=== PATIENT | male | born 1960 | race Caucasian/White ===

== ENCOUNTER 2017-10-24 14:56 | Emergency (ER) | payer BC, OTHER ==
[2017-10-24 16:29] VITALS: BP 111/75
--- NOTE | 2017-10-24 16:52 | UC ---
Ear Complaint HPI - HPI Summary HPI Summary: hearing loss in left ear---began with mild tinnitus on Tuesday that got worse now has hearing loss and increase tinnitus in left ear. 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 has had an autoimmune work up and no cause was found---after completing prednisone patient reports a flare of diverticulitis and one week ago finished a course of cipro and flagyl. patient does not work in a noisy environment, . Patient c/o some lightheadedness---but does not describe vertigo--- - History of Current Complaint Hx Obtained From: Patient Onset/Duration: Sudden Onset, Lasting Days - 3 Severity Initially: Mild Severity Currently: Moderate Associated Signs/Symptoms: Positive: Hearing Loss <Alondra Rehman - Last Filed: 10/24/17 17:45> <Jeni Chavez - Last Filed: 10/24/17 17:59> - History of Current Complaint Chief Complaint: UCEar Stated Complaint: EAR COMPLAINT, DIZZY Time Seen by Provider: 10/24/17 16:09 - Allergies/Home Medications Allergies/Adverse Reactions: Allergies Allergy/AdvReac Type Severity Reaction Status Date / Time No Known Allergies Allergy Verified 10/24/17 15:28 Home Medications: Home Medications ALPRAZolam [Xanax] 0.25 mg PO BID PRN 10/24/17 [History Confirmed 10/24/17] Cyclobenzaprine (NF) [Cyclobenzaprine 5 MG (NF)] 5 mg PO DAILY PRN 10/24/17 [ History Confirmed 10/24/17] Lisinopril/HCTZ 20/12.5(NF) [Zestoretic 20/12.5(NF)] 1 tab PO DAILY 10/24/17 [ History Confirmed 10/24/17] Ondansetron HCl [Zofran 4 MG TAB] 4 mg PO Q8HR PRN 10/24/17 [History Confirmed 10/24/17] PMH/Surg Hx/FS Hx/Imm Hx Previously Healthy: No - posterior uvitis-unknown cause Endocrine History: Dyslipidemia Cardiovascular History: Hypertension GI/ History: Diverticulitis - Surgical History Surgical History: Yes Surgery Procedure, Year, and Place: hernia repair x2. back surgery x2 - ruptured disc in Lumbar. rotator cuff repair- 2015. bilateral cataracts surgery- 2017 - Family History Known Family History: Positive: None - Social History Occupation: Employed Full-time Lives: With Family Alcohol Use: Weekly Alcohol Amount: 6 pack beer Substance Use Type: None Smoking Status (MU): Former Smoker <Alondra Rehman - Last Filed: 10/24/17 17:45> Review of Systems Constitutional: Negative Skin: Negative Eyes: Negative, Other - perrla no nystagmus ENT: Ear Ache - tinnitis and hearing loss left ear Respiratory: Negative Cardiovascular: Negative Gastrointestinal: Nausea Genitourinary: Negative Motor: Negative Neurovascular: Negative Musculoskeletal: Negative Neurological: Negative, Other - slight sway with rhomberg test Psychological: Negative Is Patient Immunocompromised?: No All Other Systems Reviewed And Are Negative: Yes <Alondra Rehman - Last Filed: 10/24/17 17:45> Physical Exam Triage Information Reviewed: Yes Appearance: Well-Appearing, No Pain Distress, Thin Vital Signs: Initial Vital Signs Temp 99 F 10/24/17 15:33 Pulse 89 10/24/17 15:33 Resp 20 10/24/17 15:33 BP 123/98 10/24/17 15:33 Pulse Ox 97 10/24/17 15:33 Vital Signs Reviewed: Yes Eye Exam: Normal Eyes: Positive: Conjunctiva Clear, Other: - perrla, eomi, no nystagmus ENT Exam: Normal ENT: Positive: Normal ENT inspection, Hearing grossly normal - in right ear, Pharynx normal, Nasal congestion, TMs normal, Uvula midline, Other - tounge midline, chescks puff equally, equal eyebrow raise. Negative: Tonsillar swelling, Tonsillar exudate, Trismus, Muffled voice, Hoarse voice, Dental tenderness, Sinus tenderness Dental Exam: Normal Neck exam: Normal Neck: Positive: Supple, Nontender, No Lymphadenopathy Respiratory Exam: Normal Respiratory: Positive: Chest non-tender, Lungs clear, Normal breath sounds, No respiratory distress, No accessory muscle use Cardiovascular Exam: Normal Cardiovascular: Positive: RRR, No Murmur, Pulses Normal, Brisk Capillary Refill Abdominal Exam: Normal Abdomen Description: Positive: Nontender, No Organomegaly, Soft. Negative: CVA Tenderness (R), CVA Tenderness (L) Bowel Sounds: Positive: Present Musculoskeletal Exam: Normal Musculoskeletal: Positive: Strength Intact, ROM Intact, No Edema Neurological Exam: Normal Neurological: Positive: Alert, Muscle Tone Normal Psychological Exam: Normal Skin Exam: Normal <Alondra Rehman - Last Filed: 10/24/17 17:45> Vital Signs: Initial Vital Signs Temp 99 F 10/24/17 15:33 Pulse 89 10/24/17 15:33 Resp 20 10/24/17 15:33 BP 123/98 10/24/17 15:33 Pulse Ox 97 10/24/17 15:33 <Jeni Chavez - Last Filed: 10/24/17 17:59> Ear Complaint Course/Dx - Course Course Of Treatment: reviewed case with Dr. Blanchard---Plan to start prednisone and call office in the morning for an appointment - Differential Dx/Diagnosis Provider Diagnoses: tinnitis, left ear hearing loss - Physician Notifications Discussed Patient Care With: Chapito Blanchard Time Discussed With Above Provider: 17:40 <Alondra Rehman - Last Filed: 10/24/17 17:45> Discharge - Sign-Out/Discharge Documenting (check all that apply): Discharge/Admit/Transfer - Billing Disposition and Condition Condition: STABLE Disposition: Home <Alondra Rehman - Last Filed: 10/24/17 17:45> - Billing Disposition and Condition Condition: STABLE Disposition: Home <Jeni Chavez - Last Filed: 10/24/17 17:59> - Discharge Plan Condition: Stable Disposition: HOME Prescriptions: predniSONE TAB* [Deltasone 10 MG TAB*] 10 mg PO DAILY #65 tab Patient Education Materials: Hearing Loss (ED), Tinnitus (ED) Referrals: Chapito Blanchard MD [Medical Doctor] - (call in the morning on Tuesday for an appointment) Dayana Toscano PA [Primary Care Provider] - Attestation Statement User Type: Provider - I was available for consult. This patient was seen by the [facility]. The patient was not presented to, seen by, or examined by me. -Evelin <Jeni Chavez - Last Filed: 10/24/17 17:59>
== END 2017-10-24 17:52 | disposition home or self-care (01) ==
LOC: UCEAST 14:56
DX: H93.12 Tinnitus, left ear (principal); H91.92 Unspecified hearing loss, left ear; H20.9 Unspecified iridocyclitis; E78.5 Hyperlipidemia, unspecified; I10 Essential (primary) hypertension; K57.92 Diverticulitis of intestine, part unspecified, without perforation or abscess without bleeding; Z87.891 Personal history of nicotine dependence
CPT/HCPCS: 81003; 99212; G0463